=== PATIENT | male | born 1940 | race Caucasian/White ===

== ENCOUNTER 2024-09-11 20:48 | Inpatient (IN) | payer MEDICARE, OTHER ==
[~2024-09-11] VITALS: Ht 167.6 cm; Wt 67.5 kg
[2024-09-11] MEDS ORDERED: Diphth,Pertuss(Acell),Tet Vac 0.5 ML VIAL IM ONE (22:25)
[2024-09-11 22:57] LABS: BASOPHILS ABSOLUTE AUTO 0.09 K/mm3 (0.00-0.23); BASOPHILS PERCENT AUTO 1 % (0-2); EOSINOPHILS ABSOLUTE AUTO 0.22 K/mm3 (0.00-0.68); EOSINOPHILS PERCENT AUTO 2 % (0-6); Hematocrit 35.2 % (37.0-53.0); Hemoglobin 11.5 g/dL (13.5-17.5); IMMATURE GRAN ABSOLUTE AUTO 0.05 K/mm3 (0.00-0.10); IMMATURE GRAN PERCENT AUTO 0 % (0-1); LYMPHOCYTES ABSOLUTE AUTO 1.22 K/mm3 (0.84-5.20); LYMPHOCYTES PERCENT AUTO 10 % (21-46); MONOCYTES ABSOLUTE AUTO 1.41 K/mm3 (0.16-1.47); MONOCYTES PERCENT AUTO 12 % (4-13); Mean Corpuscular HGB 35.8 pg (26.0-34.0); Mean Corpuscular HGB Conc 32.7 g/dL (31.5-36.5); Mean Corpuscular Volume 110 fL (80-100); Mean Platelet Volume 8.8 fL (9.1-12.4); NEUTROPHILS ABSOLUTE AUTO 8.77 K/mm3 (1.96-9.15); NEUTROPHILS PERCENT AUTO 75 % (41-73); Platelet Count 209 K/mm3 (150-400); Red Blood Cell Count 3.21 M/mm3 (4.30-5.90); White Blood Cell Count 11.76 K/mm3 (4.00-11.30)
[2024-09-11 23:09] LABS: Albumin, Blood 3.3 g/dL (3.4-5.0); Albumin/Globulin Ratio 1.1 (0.8-1.8); Bilirubin, Total 0.3 mg/dL (0.1-1.0); Bun/Creatinine Ratio 20.8 (12.0-20.0); Calcium, Blood 8.4 mg/dL (8.5-10.1); Creatinine, Blood 1.01 mg/dL (0.60-1.20); Globulin, Blood 3.1 g/dL (2.2-4.0); Potassium, Blood 3.6 mmol/L (3.5-5.5); Total Protein, Blood 6.4 g/dL (6.4-8.2)
[2024-09-11] MEDS ORDERED: FentaNYL Citrate 50 MCG/ML 2 ML Injection IV PRN (23:30)
[2024-09-11] MEDS ORDERED: FLU VACC TS2024-25(6MOS UP)/PF 45 MCG/0.5 ML SYRINGE IM ONE (23:30)
[2024-09-11] MEDS ORDERED: Ondansetron HCl 2 MG / ML 2ML Vial IV PRN (23:30)
[2024-09-11] MEDS ORDERED: NS 1,000 ML IV ONE (23:30)
[2024-09-12] VITALS (16 sets, daily range): BP systolic 115–162; BP diastolic 60–91
[2024-09-12] MEDS ORDERED: Vitamin D1000 UNI1 PO (00:01)
[2024-09-12] MEDS ORDERED: MULVITA PO (00:01)
[2024-09-12] MEDS ORDERED: Aspir 8181 MG PO (00:01)
[2024-09-12] MEDS ORDERED: OMEP20ER PO (00:02)
[2024-09-12] MEDS ORDERED: TAMS.4ER PO (00:02)
[2024-09-12] MEDS ORDERED: B-COMPLEX WITH1 EAC2 PO (00:02)
[2024-09-12] MEDS ORDERED: Amlodipine Bes2.5 MG PO (00:03)
[2024-09-12] MEDS ORDERED: ATOR40TA PO (00:03)
[2024-09-12] MEDS ORDERED: CAND16 PO (00:04)
[2024-09-12] MEDS ORDERED: METO25ER PO (00:04)
[2024-09-12] MEDS ORDERED: Clomiphene Citr50 MG PO (00:07)
[2024-09-12 06:22] LABS: BASOPHILS ABSOLUTE AUTO 0.06 K/mm3 (0.00-0.23); BASOPHILS PERCENT AUTO 1 % (0-2); EOSINOPHILS ABSOLUTE AUTO 0.11 K/mm3 (0.00-0.68); EOSINOPHILS PERCENT AUTO 1 % (0-6); Hematocrit 31.2 % (37.0-53.0); Hemoglobin 10.7 g/dL (13.5-17.5); IMMATURE GRAN ABSOLUTE AUTO 0.03 K/mm3 (0.00-0.10); IMMATURE GRAN PERCENT AUTO 0 % (0-1); LYMPHOCYTES ABSOLUTE AUTO 1.31 K/mm3 (0.84-5.20); LYMPHOCYTES PERCENT AUTO 11 % (21-46); MONOCYTES ABSOLUTE AUTO 1.55 K/mm3 (0.16-1.47); MONOCYTES PERCENT AUTO 13 % (4-13); Mean Corpuscular HGB 36.1 pg (26.0-34.0); Mean Corpuscular HGB Conc 34.3 g/dL (31.5-36.5); Mean Platelet Volume 8.9 fL (9.1-12.4); NEUTROPHILS ABSOLUTE AUTO 8.51 K/mm3 (1.96-9.15); NEUTROPHILS PERCENT AUTO 74 % (41-73); Platelet Count 212 K/mm3 (150-400); RDW Standard Deviation 58.4 fL (35.1-46.3); Red Blood Cell Count 2.96 M/mm3 (4.30-5.90); White Blood Cell Count 11.57 K/mm3 (4.00-11.30)
--- NOTE | 2024-09-12 06:39 | NUR ---
SHIFT SUMMARY ASSUMED CARE OF PT, WHOM WAS TRANSFERRED FROM ED, AT APPROX 0030. PT PRESENTED WITH R HIP FX AND UNABLE TO MOVE RLE D/T A FALL. PT ALSO HAS AN ABRASION TO THE R ELBOW FROM INCIDENT, NO OTHER SKIN BREAKDOWN PRESENT. PT GOOD HISTORIAN, COOPERATIVE IN CARE AND ABLE TO EXPRESS NEEDS APPROPRIATELY. VSS AND PT REMAINED ON RA. PT DENIED CP/PRESSURE AND SOB OVERNIGHT. PRN ANALGESICS GIVEN FOR PAIN MANAGEMENT. PT'S BED IN LOWEST POSITION AND CALL LIGHT WITHIN REACH.
[2024-09-12 06:45] LABS: Albumin, Blood 3.3 g/dL (3.4-5.0); Albumin/Globulin Ratio 1.1 (0.8-1.8); Bilirubin, Total 0.5 mg/dL (0.1-1.0); Bun/Creatinine Ratio 20.5 (12.0-20.0); Calcium, Blood 8.2 mg/dL (8.5-10.1); Creatinine, Blood 0.88 mg/dL (0.60-1.20); Potassium, Blood 3.7 mmol/L (3.5-5.5); Total Protein, Blood 6.3 g/dL (6.4-8.2)
[2024-09-12 07:15] LABS: Mean Corpuscular Volume 105 fL (80-100)
[2024-09-12] MEDS ORDERED: Losartan Potassium 25 MG Tab PO SCH (09:00)
[2024-09-12] MEDS ORDERED: Aspirin 81 MG TabEC PO SCH (09:00)
[2024-09-12] MEDS ORDERED: Tamsulosin HCl 0.4 MG Cap PO SCH (09:00)
[2024-09-12] MEDS ORDERED: AmLODIPine Besylate 5 MG Tab PO SCH (09:00)
[2024-09-12] MEDS ORDERED: Metoprolol Succinate 25 MG TABCR PO SCH (09:00)
[2024-09-12] MEDS ORDERED: Tranexamic Acid 1,000 MG in NS 100 ML IV SCH (14:20)
[2024-09-12] MEDS ORDERED: CeFAZolin Sodium 2,000 MG in NS 100 ML IV SCH (14:20)
[2024-09-12] MEDS ORDERED: CeFAZolin Sodium 2,000 MG VIAL ONE (14:20)
[2024-09-12] MEDS ORDERED: Lactated Ringer's 1,000 ML IV SCH (14:20)
--- NOTE | 2024-09-12 14:34 | NUR ---
PT TO DAY SURGERY FOR PREP TO GO TO OR
--- NOTE | 2024-09-12 15:00 | NUR ---
INTO SDS VIA BED. PT A&OX4-REPORTS 2/10 RIGHT HIP PAIN. BILATERAL HEARING AIDES IN PLACE. HISTORY AND ALLERGIES REVIEWED. HOLOSYLSTOLIC MURMUR AUSCULTATED. LUNGS CLEAR-NO NOTED SOB-SATS>90% ON RA. NPO STATUS CONFIRMED. PT HAS SCATTERED BRUISING TO UPPER EXTREMITIES FROM HIS FALL. RIGHT ELBOW WITH COBAN C/D/I.NO CHLORHEXIDINE WIPE, TEDS, OR PAS PT REPORTS SEVERE PAIN WITH MOVEMENT.
[2024-09-12] MEDS ORDERED: FentaNYL Citrate 50 MCG/ML 2 ML Injection ONE (15:06)
[2024-09-12] MEDS ORDERED: propofoL 20 ML IV ONE (15:06)
[2024-09-12] MEDS ORDERED: Dexamethasone Sod Phos 10 MG/ML 1ML VIAL ONE (15:07)
[2024-09-12] MEDS ORDERED: Ondansetron HCl 2 MG / ML 2ML Vial ONE (15:07)
[2024-09-12] MEDS ORDERED: Lidocaine HCl 2% 20 ML MDV ONE (15:14)
[2024-09-12] MEDS ORDERED: Phenylephrine HCl 100 MCG/ML-NS 10MLSYR (1MG/10ML) ONE ×2 (15:22→16:22)
[2024-09-12] MEDS ORDERED: EpiNEPhrine 1 MG/1 ML 1ML Vial ONE (15:49)
[2024-09-12] MEDS ORDERED: Labetalol HCL 5 MG/ML 4ML Injection (Single Dose) IV PRN (15:50)
[2024-09-12] MEDS ORDERED: HYDROmorphone HCl/Pf 1MG SYR IV PRN (15:50)
[2024-09-12] MEDS ORDERED: Ondansetron HCl 2 MG / ML 2ML Vial IV PRN (15:50)
[2024-09-12] MEDS ORDERED: FentaNYL Citrate 50 MCG/ML 2 ML Injection IV PRN ×2 (15:50)
[2024-09-12] MEDS ORDERED: Bupivacaine 0.5% HCl 5 MG/ML 30MLVIAL ONE (15:51)
--- NOTE | 2024-09-12 18:46 | NUR ---
SHIFT SUMMARY POD0 R HIP NAILING, A/OX4, VSS, TOLERATING PO, PAIN MANAGED PER EMAR, FAMILY AT THE BEDSIDE TODAY AND NO CONCERNS REPORTED. POST OP VITALS ONGOING, NO ACUTE EVENTS THIS THIS, [facility]
--- NOTE | 2024-09-13 04:15 | NUR ---
SHIFT SUMMARY POD 1 R HIP PINNING. NO ACUTE CHANGES OVERNIGHT. VSS. EMI MIN PO INTAKE. VOIDING USING URIANL. BM USING BEDPAN. ATTEMPT TO STAND PT @ BEDSIDE, PT UNABLE TO STAND, DESPITE 2 PERSON ASSIST R/T WEAKNESS. AQUACEL TO R HIP C/D/I. PT REPORTS PAIN TOLERABLE. ANTICIPATED TO WORK WITH PHYSCIAL THERAPY LATER TODAY. FAMILY @ BEDSIDE. CALL LIGHT IN REACH, BED IN LOWEST POSITION, WILL REPORT TO DAY RN.
[2024-09-13] MEDS ORDERED: Omeprazole 20 MG CapCR PO SCH (06:00)
[2024-09-13 06:08] LABS: BASOPHILS ABSOLUTE AUTO 0.02 K/mm3 (0.00-0.23); BASOPHILS PERCENT AUTO 0 % (0-2); EOSINOPHILS PERCENT AUTO 0 % (0-6); Hematocrit 27.3 % (37.0-53.0); Hemoglobin 9.2 g/dL (13.5-17.5); IMMATURE GRAN ABSOLUTE AUTO 0.09 K/mm3 (0.00-0.10); IMMATURE GRAN PERCENT AUTO 1 % (0-1); LYMPHOCYTES ABSOLUTE AUTO 0.93 K/mm3 (0.84-5.20); LYMPHOCYTES PERCENT AUTO 8 % (21-46); MONOCYTES ABSOLUTE AUTO 2.33 K/mm3 (0.16-1.47); MONOCYTES PERCENT AUTO 19 % (4-13); Mean Corpuscular HGB 35.2 pg (26.0-34.0); Mean Corpuscular HGB Conc 33.7 g/dL (31.5-36.5); Mean Corpuscular Volume 105 fL (80-100); NEUTROPHILS ABSOLUTE AUTO 9.05 K/mm3 (1.96-9.15); NEUTROPHILS PERCENT AUTO 73 % (41-73); Platelet Count 193 K/mm3 (150-400); RDW Coefficient Variation 14.7 % (11.7-14.2); RDW Standard Deviation 55.8 fL (35.1-46.3); Red Blood Cell Count 2.61 M/mm3 (4.30-5.90); White Blood Cell Count 12.42 K/mm3 (4.00-11.30)
[2024-09-13 06:19] VITALS: BP 120/81
[2024-09-13 06:33] LABS: Albumin, Blood 3.2 g/dL (3.4-5.0); Albumin/Globulin Ratio 1.1 (0.8-1.8); Bilirubin, Total 0.6 mg/dL (0.1-1.0); Bun/Creatinine Ratio 21.3 (12.0-20.0); Calcium, Blood 8.4 mg/dL (8.5-10.1); Creatinine, Blood 0.94 mg/dL (0.60-1.20); Potassium, Blood 4.1 mmol/L (3.5-5.5); Total Protein, Blood 6.2 g/dL (6.4-8.2)
[2024-09-13 07:28] VITALS: BP 137/74
[2024-09-13] MEDS ORDERED: Acetaminophen 325 MG TABLET PO PRN (14:10)
[2024-09-13] MEDS ORDERED: OxyCODONE HCL 5 MG TAB PO PRN (14:10)
[2024-09-13] MEDS ORDERED: Ketorolac Tromethamine 30mg Vial IV PRN (14:15)
[2024-09-13] MEDS ORDERED: Ketorolac Tromethamine 15mg Vial IV PRN (15:50)
[2024-09-13 15:58] VITALS: BP 121/56
[2024-09-13] MEDS ORDERED: Enoxaparin 40 MG/0.4 ML SYR SC SCH (16:00)
--- NOTE | 2024-09-13 17:46 | NUR ---
SHIFT SUMMARY POD1 R HIP NAILING, A/OX4, VSS, TOLERATING PO, WORKED WITH THERAPY (PT AND OT), UP TO BSC AND HE SPENT SOME TIME UP IN THE CHAIR TODAY. PAIN WELL MANAGED. NO ACUTE EVENTS THIS SHIFT, CALL LIGHT IN REACH.
[2024-09-13 19:52] VITALS: BP 118/63
[2024-09-14 03:48] VITALS: BP 117/73
--- NOTE | 2024-09-14 04:34 | NUR ---
SHIFT SUMMARY POD 2 R HIP PINNING. NO ACUTE CHANGES OVERNIGHT. VSS. EMI PO INTAKE. VOIDING USING URIANL. AMBULATES USING FWW c GB & 1 PERSON ASSIST R/T WEAKNESS. AQUACEL x2 TO R HIP C/D/I. PT REPORTS PAIN TOLERABLE, MEDICATED PER EMAR. ANTICIPATED D/C TO [facility]. FAMILY @ BEDSIDE. CALL LIGHT IN REACH, BED IN LOWEST POSITION, WILL REPORT TO DAY RN.
[2024-09-14 05:05] LABS: BASOPHILS ABSOLUTE AUTO 0.04 K/mm3 (0.00-0.23); BASOPHILS PERCENT AUTO 0 % (0-2); EOSINOPHILS ABSOLUTE AUTO 0.13 K/mm3 (0.00-0.68); EOSINOPHILS PERCENT AUTO 1 % (0-6); Hematocrit 23.8 % (37.0-53.0); IMMATURE GRAN ABSOLUTE AUTO 0.04 K/mm3 (0.00-0.10); IMMATURE GRAN PERCENT AUTO 0 % (0-1); LYMPHOCYTES PERCENT AUTO 13 % (21-46); MONOCYTES ABSOLUTE AUTO 2.29 K/mm3 (0.16-1.47); MONOCYTES PERCENT AUTO 21 % (4-13); Mean Corpuscular HGB 35.7 pg (26.0-34.0); Mean Corpuscular HGB Conc 33.6 g/dL (31.5-36.5); Mean Corpuscular Volume 106 fL (80-100); Mean Platelet Volume 9.4 fL (9.1-12.4); NEUTROPHILS ABSOLUTE AUTO 7.23 K/mm3 (1.96-9.15); NEUTROPHILS PERCENT AUTO 65 % (41-73); Platelet Count 199 K/mm3 (150-400); RDW Coefficient Variation 14.9 % (11.7-14.2); RDW Standard Deviation 57.7 fL (35.1-46.3); Red Blood Cell Count 2.24 M/mm3 (4.30-5.90); White Blood Cell Count 11.13 K/mm3 (4.00-11.30)
[2024-09-14 07:22] VITALS: BP 108/60
[2024-09-14 15:37] VITALS: BP 99/65
--- NOTE | 2024-09-14 16:29 | NUR ---
SHIFT SUMMARY PT CONTINUES TO FEEL STRONGER & INCREASE HIS ACTIVITY. WORKED w/ PT & OT IN AM & AMBULATED IN HALLWAY w/ STAFF IN AFTERNOON.
[2024-09-14 19:49] VITALS: BP 110/66
--- NOTE | 2024-09-15 04:19 | NUR ---
SHIFT SUMMARY POD 3 R HIP PINNING PT RESTED FOR MOST OF SHIFT. DENIES ANY PAIN. TOLERATING PO INTAKE. VOIDING. PT HAD BM TONIGHT. PT 1P ASST WITH FWW AND GB. TAKING WALKS TO THE BATHROOM. DRESSING TO R HIP IS C/D/I, WITH SLIGHT SHADOWING TO UPPER AQUACEL. VSS. NO OTHER CONCERNS AT THIS TIME, CALL LIGHT WITHIN REACH
[2024-09-15 05:53] VITALS: BP 109/65
[2024-09-15 07:18] VITALS: BP 114/55
[2024-09-15] MEDS ORDERED: Percocet 5-3251 EACH PO (14:34)
[2024-09-15] MEDS ORDERED: ENOX40I SC (15:02)
[2024-09-15] MEDS ORDERED: MIRALAX17 GM PO (15:03)
[2024-09-15 15:27] VITALS: BP 134/69
--- NOTE | 2024-09-15 16:51 | NUR ---
DISCHARGE PT EDUCATED ON AND RECEIVED PRINTED DISCHARGE INSTRUCTIONS AND VERBALIZED AN UNDERSTANDING. PT FAMILY FILLED ALL RX [facility] [place]. AQUACEL DRESSINGS GIVEN TO FAMILY. FWW GIVEN TO PT BY CARE MANAGEMENT. CARE MANAGEMENT [facility] SET UP IN [place]. PT LEFT WITH ALL PERSONAL BELONGINGS AND ESCORTED OUT IN W/C TO VEHICLE WITH FAMILY AT SIDE.
== END 2024-09-15 16:50 | disposition home health service (06) | DRG 482 ==
LOC: ER 20:48 → SURS 23:38 → ERHOLD 23:38 → SURS 23:58
PROVIDERS: Family Medicine; Orthopaedic Surgery; Student in an Organized Health Care Education/Training Program; ADMIT Internal Medicine
PROC: 0QS606Z Reposition Right Upper Femur with Intramedullary Internal Fixation Device, Open Approach (ICD-10-PCS; principal; 2024-09-12 15:30)
DX: S72.141A Displaced intertrochanteric fracture of right femur, initial encounter for closed fracture (principal); I10 Essential (primary) hypertension; K21.9 Gastro-esophageal reflux disease without esophagitis; D64.9 Anemia, unspecified; E78.5 Hyperlipidemia, unspecified; N40.0 Benign prostatic hyperplasia without lower urinary tract symptoms; Z28.21 Immunization not carried out because of patient refusal; W18.09XA Striking against other object with subsequent fall, initial encounter; Z79.82 Long term (current) use of aspirin; Z79.899 Other long term (current) drug therapy
CPT/HCPCS: 36415; 73502; 80053; 83880; 85025; 90471; 90715; 93005; 93010; 97110; 97116; 97162; 97165; 97530; 97535; 99285-25; A9270; C1713; C1769; J0171; J0690; J1100; J1650; J1885; J2371; J2405; J2704; J3010; J7030